=== PATIENT | male | born 1955 | race Caucasian/White ===

== ENCOUNTER 2016-02-29 02:14 | Inpatient (IN) | payer OTHER ==
[~2016-02-29] VITALS: Ht 198.1 cm; Wt 108.9 kg
[~2016-02-29 02:14] MED LIST: ASPIRIN EC81 M1 PO; AUGMENTIN 875-1 EACH PO; HYDROCHLOROTH12.5 M3 PO; LISINOPRIL10 M1 PO; PERCOCET 5-3251 EACH PO
--- NOTE | 2016-02-29 13:36 | Admission Core Measures ---
Admission Meds I reviewed the following Meds: Current Medications Sig/Lilian Start time Last Medication Dose Stop Time Status Admin Ampicillin Sodium/ 3,000 MG ONCE 02/28 0000 NR Sulbactam Sodium 02/28 2359 (Unasyn) Sodium Chloride 100 ML (Normal Saline 0.9%) Acute Coronary Syndrome Inclusion Criteria ACS Diagnosis No Inpatient Core Measures LDL Reminder: If No, please order W/I first 24hr of stay Congestive Heart Failure Inclusion Criteria CHF Diagnosis No Cerebrovascular accident Inclusion Criteria CVA/TIA Diagnosis No Inpatient Core Measures Bedside Swallow Eval Reminder: If BSE failed, place ST order Antithrombotic Reminder: Order Antithrombotic Medication by end of day 2 Antithrombotic Reminder: Document Reason Antithrombotic Not ordered by end of day 2 AFIB/Flutter Reminder: If Present, add to problem list AFIB/Flutter Reminder: Order Anticoag Medication for pts with AFIB/Flutter Atherosclerosis Reminder: If Present, add to problem list LDL Reminder: If No, please order W/I first 24hr of stay PT Order Reminder: If No, please order Venous thromboembolism Inpatient Core Measures VTE Risk Factors: Age > 40, Surgery VTE Prophylaxis Ordered Inpt Mech & Pharm No Mech VTE prophylaxis d/t No contraindications No VTE Pharm Prophylaxis d/t No contraindications Inclusion Criteria - Per Current guidelines, there needs to be overlap - treatment for the first 5 days of Warfarin therapy. - Parenteral Anticoagulation (IV or SC) needs to be - given along with Warfarin therapy. VTE Diagnosis No VTE Type NONE VTE Confirmed by (Test) NONE Problem List As ranked by this Provider includes Assessment & Plan 1. History of colostomy reversal HOME MEDS Home Med List Aspirin (Ecotrin*) 81 MG TABLET. 1 TAB PO DAILY HEART/BLOOD (Reported) Hydrochlorothiazide 12.5 MG CAPSULE 25 MG PO DAILY hypertension Lisinopril 10 MG TABLET 1 TAB PO DAILY hypertension
--- NOTE | 2016-02-29 19:26 | Admission Core Measures ---
Admission Meds I reviewed the following Meds: Current Medications Sig/Lilian Start time Last Medication Dose Stop Time Status Admin Ampicillin Sodium/ 3,000 MG ONCE 02/28 0000 NR Sulbactam Sodium 02/289 (Unasyn) Sodium Chloride 100 ML (Normal Saline 0.9%) Hydrochlorothiazide 25 MG DAILY 03/01 1000 UNVr (Hydrodiuril) Lisinopril 10 MG DAILY 03/01 1000 UNVr (Prinivil) Acute Coronary Syndrome Inclusion Criteria ACS Diagnosis No Inpatient Core Measures LDL Reminder: If No, please order W/I first 24hr of stay Congestive Heart Failure Inclusion Criteria CHF Diagnosis No Cerebrovascular accident Inclusion Criteria CVA/TIA Diagnosis No Inpatient Core Measures Bedside Swallow Eval Reminder: If BSE failed, place ST order Antithrombotic Reminder: Order Antithrombotic Medication by end of day 2 Antithrombotic Reminder: Document Reason Antithrombotic Not ordered by end of day 2 AFIB/Flutter Reminder: If Present, add to problem list AFIB/Flutter Reminder: Order Anticoag Medication for pts with AFIB/Flutter Atherosclerosis Reminder: If Present, add to problem list LDL Reminder: If No, please order W/I first 24hr of stay PT Order Reminder: If No, please order Venous thromboembolism Inpatient Core Measures VTE Risk Factors: Age > 40, Surgery VTE Prophylaxis Ordered Inpt Mech & Pharm No Mech VTE prophylaxis d/t No contraindications No VTE Pharm Prophylaxis d/t No contraindications Inclusion Criteria - Per Current guidelines, there needs to be overlap - treatment for the first 5 days of Warfarin therapy. - Parenteral Anticoagulation (IV or SC) needs to be - given along with Warfarin therapy. VTE Diagnosis No VTE Type NONE VTE Confirmed by (Test) NONE Problem List As ranked by this Provider includes Assessment & Plan 1. History of colostomy reversal HOME MEDS Home Med List Aspirin (Ecotrin*) 81 MG TABLET. 1 TAB PO DAILY HEART/BLOOD (Reported) Hydrochlorothiazide 12.5 MG CAPSULE 25 MG PO DAILY hypertension Lisinopril 10 MG TABLET 1 TAB PO DAILY hypertension
--- NOTE | 2016-02-29 20:15 | Operative Report ---
Operative/Inv Procedure Report Surgery Date: 02/29/16 Name of Procedure: reversal of colostomy Pre-Operative Diagnosis: colostomy (s/p Hartmans for perforated colon) Post-Operative Diagnosis: same Estimated Blood Loss: less than 50ml Surgeon/Ship Fitter: NIA DU,PRATIBHA CHAUDHRY Anesthesia: general endotracheal tube Operative/Procedure Note Note: Patient was positioned supine, after induction of general anesthesia, a tap block was performed, IV antibiotics were given, the colostomy was sutured shut and then the abdomen was clipped prepped and draped in the nipples to the groin in the usual sterile fashion patient was repositioned into lithotomy, and I irrigated the rectal stump with saline with a little bit of Betadine, several times gently. Next a midline incision was made excising the previous scar, with a 10 blade starting 2 cm above the umbilicus curving around to the right and ending just above the pubis. The incision was deepened with cautery through Carl's fascia clearing off the linea alba first then carefully incising it avoiding injury to the underlying small bowel which was quite adherent throughout the length the incision eventually we were able to run its entire length after extensive lysis of adhesions mostly to the anterior abdominal wall, but also to the rectal stump which had a ball of mucus at the end so, the Bookwalter retractor was set up to retract the small bowel and the cecum upwards exposing the pelvis, after some mobilization this end of the rectal stump had to be revised below the original staple line with a TA 60 stapler. We inserted a sizer per rectum to get a sense of the trajectory mobility of the rectal stump and decided that we were going to be able to go ahead. Next the colostomy was mobilized from the abdominal wall from both sides initially starting at the skin which was incised with the cautery care was taken to not injure the mesentery of the colon. Once mobilized and also some additional mobilization along the white line of Toldt laterally we could see that this could easily reach the rectal stump without tension or twisting. Then the colostomy and was engaged in the pursestring device, the distal tip excised and some of the scar and cleared off and after sizing a 31 EEA anvil was tied into the and and cleared off some more. Care was taken to not injure the mesentery. The bus assistant below had the EEA stapler and it was inserted under my guidance the spike was advanced just off to the left side near the staple line and then mated to the anvil clicked shot and the stapler was then fired. It was disengaged there were 2 complete donuts. Next using the proctoscope inserted distal to the anastomosis, we gently checked several times with air under the submerged anastomosis, it was airtight. The peritoneum especially the pelvis was irrigated checked for hemostasis, the position of the NG tube was checked and then the hole in the abdominal wall in the left lower quadrant for the ostomy was closed in layers first at the peritoneal level with an 0 Vicryl and then at the fascia level with 0 Maxon and then the skin was stapled but leaving an opening laterally so that we could wake that subcutaneous space with an iodoform 1 inch strip. The midline incision was reapproximated with 0 Maxon as well continuous, and then the skin was reapproximated with interrupted 3-0 Vicryl sutures subdermally especially around the umbilicus and then the skin was stapled and covered with an island dressing and ostomy site was covered with fluff gauze and tape. EBL minimal lap and sponge counts correct wound expectancy was clean contaminated IV fluids crystalloid complications none, patient had the procedure well and was returned to the recovery room in satisfactory condition.
[2016-02-29 21:00] VITALS: BP 156/90
--- NOTE | 2016-02-29 22:20 | NUR ---
PT ARRIVED FROM PACU, ALERT AND ORIENTED TIMES 3, VSS, AFEBRILE. NGT PATENT, TO LOW WALL SUCTION. MIDLINE ABDOMINAL DRESSING CLEAN DRY AND INTACT, DRESSING TO OLD COLOSTOMY SITE INTACT. ALPS ARE ON, SOME EDEMA TO RUE. DENIES PAIN AT THIS TIME. CALL [facility] WITHIN REACH
--- NOTE | 2016-02-29 22:27 | PN- General Surgery ---
Subjective Subjective: Post Op Note s/p colostomy reversal No c/o. Pain controlled. No n/v. No flatus, bm. Denies CP/SOB. Objective Vital Signs and I&Os Vital Signs Date Time Temp Pulse Resp B/P Pulse O2 O2 Flow FiO2 Ox Delivery Rate 02/28 2211 94 Room Air 02/28 2100 98.1 60 18 156/90 96 Room Air Physical Exam: General: NAD, comfortable, A&Ox3 Chest: CTAB, no wheezes, no rales. RRR Abdomen: soft, nondistended. Appropriately tender. Midline dressing with small amount of strikethrough otherwise clean dry and intact. Old Stoma site dressing clean dry and intact. Ext: No calve swelling/TTP, neurovascularly intact bilateral lower extremities Current Medications: Current Medications Sig/Lilian Start time Last Medication Dose Route Stop Time Status Admin Acetaminophen 650 MG Q6PRN PRN 02/28 223 UNVr PO Acetaminophen 1,000 MG .STK-MED ONE 02/28 1243 DC IV 02/28 1244 Ampicillin Sodium/ 3,000 MG ONCE 02/28 0000 DC Sulbactam Sodium IV 02/28 2359 Sodium Chloride 100 ML Dexamethasone 4 MG .STK-MED ONE 02/28 1244 DC IM 02/28 1245 Fentanyl Citrate 250 MCG .STK-MED ONE 02/28 1242 DC IM 02/28 1243 Heparin Sodium 5,000 UNIT Q8 02/28 2200 UNVr (Porcine) SC Hydrochlorothiazide 25 MG DAILY 03/01 1000 AC PO Hydromorphone HCl 2 MG .STK-MED ONE 02/28 1242 DC IM 02/28 1243 Ketorolac 30 MG .STK-MED ONE 02/28 1243 DC Tromethamine IM 02/28 1244 Lisinopril 10 MG DAILY 03/01 1000 AC PO Midazolam HCl 2 MG .STK-MED ONE 02/28 1243 DC IM 02/28 1244 Morphine Sulfate 2 MG Q3P PRN 02/28 2230 UNVr IV Morphine Sulfate 4 MG Q3P PRN 02/28 2230 UNVr IV Ondansetron HCl 4 MG Q8P PRN 02/28 2230 UNVr IV Ondansetron HCl 4 MG .STK-MED ONE 02/28 1243 DC IM 02/28 1244 Pantoprazole Sodium 40 MG DAILY 03/01 1000 UNVr IV Potassium Chloride 20 MEQ .Q10H 02/28 2230 UNVr Dextrose/Sodium 1,000 ML IV Chloride Assessment/Plan Assessment/Plan 60yo M POD#0 status post colostomy. AVSS, patient stable. - Nothing by mouth - NG tube to low wall suction - Pain control - When necessary Zofran - SQ heparin and Alps for DVT prophylaxis - I/O's - DC Mazariegos in a.m. - Continue IV fluid - CBC and BEP in a.m. - Out of bed as desired. First time with assistance. Core Measures/Miscellaneous Venous Thromboembolism VTE Risk Factors: Age > 40, Surgery VTE Contraindications: No Contraindications VTE Prophylaxis Ordered Inpt Mech & Pharm VTE Diagnosis: No VTE Type: NONE VTE Confirmed by (Test): NONE Beta Nikko Is Beta Nikko a Home Med? No Antibiotics Is Patient on Antibiotics? No
[2016-03-01] VITALS: BP 140/80
--- NOTE | 2016-03-01 06:37 | PN- General Surgery ---
See Addendum Subjective Subjective: Reports discomfort from ng tube mostly. Denies abdominal pain. Stapleton removed last night at his request, and he's voided several times since. No dizziness. No shortness of breath. No chest pains. Objective Vital Signs and I&Os Vital Signs Date Time Temp Pulse Resp B/P Pulse O2 O2 Flow FiO2 Ox Delivery Rate 03/01 0000 94 Room Air 03/01 0000 98.9 63 20 140/80 90 Room Air 02/28 2211 94 Room Air 02/28 2100 98.1 60 18 156/90 96 Room Air Intake & Output 03/01 0800 03/01 0000 02/28 1600 02/28 0800 02/28 0000 02/27 1600 Intake Total 800 300 Output Total 700 450 Balance 100 -150 Intake, IV 800 300 Intake, Oral 0 Output, 50 Gastric Drainage Output, Urine 700 400 Patient 240 lb Weight Physical Exam: General - alert & oriented x 3. comfortable. no acute distress. Lungs - clear bilaterally. no w/r/r. Cardiac - s1s2. reg. Abdomen - soft. few bowel sounds appreciated. dressings c/d/i. ng tube with scant drainage Extremities - warm bilaterally. no c/c/e. calves soft and nontender b/l. Assessment/Plan Assessment/Plan 60yo M POD#1 s/p reversal of colostomy (s/p hartmans for perforated colon) currently npo / ngt ?d/c ng tube pain control as ordered oob/ambulation encouraged hep sc - dvt ppx orion-operative unasyn completed stapleton removed last night. already voiding without difficulty f/u am labs to d/w Core Measures/Miscellaneous Venous Thromboembolism VTE Risk Factors: Age > 40, Surgery VTE Contraindications: No Contraindications VTE Prophylaxis Ordered Inpt Mech & Pharm VTE Diagnosis: No VTE Type: NONE VTE Confirmed by (Test): NONE Beta Nikko Is Beta Nikko a Home Med? No Antibiotics Is Patient on Antibiotics? No
[2016-03-01 08:22] VITALS: BP 142/95
[2016-03-01 08:42] LABS: ABSOLUTE BASOPHIL COUNT 0 /CUMM (0.0-0.2); ABSOLUTE EOSINOPHIL COUNT 0 /CUMM (0.0-0.7); ABSOLUTE GRANULOCYTE CT 8.1 /CUMM (1.4-6.5); ABSOLUTE LYMPH COUNT 1.5 /CUMM (1.2-3.4); ABSOLUTE MONOCYTE COUNT 0.6 /CUMM (0.10-0.60); BASOPHIL % 0.2 % (0.0-2.0); EOSINOPHIL % 0 % (0-5); MEAN CORPUSCULAR HGB 30.5 PG (27.0-31.0); MEAN CORPUSCULAR HGB CONC 33.5 G/DL (33.0-37.0); MEAN CORPUSCULAR VOLUME 90.8 FL (80.0-94.0); MEAN PLATELET VOLUME 9.9 FL (7.4-10.4); PLATELET COUNT 142 /CUMM (130-400); RBC DISTRIBUTION WIDTH 13.3 % (11.5-14.5); RED BLOOD CELL CT 4.74 /CUMM (4.70-6.10)
[2016-03-01 09:35] LABS: WHITE BLOOD CELL COUNT 10.2 /CUMM (4.8-10.8)
--- NOTE | 2016-03-01 11:54 | NUR ---
PT REFUSED TO TAKE BP MEDS EVEN THOUGH HIS BP IS 148/96. PT SAYS HIS DAUGHTER IS A DOCTOR AND TOLD HIM NOT TO TAKE THE MEDS. THIS NURSE INFORMED SHANTELL, THE ROSARIO BECERRA AND DR KRAMER WHO BOTH SPOKE WITH THE PATIENT AND EXPLAINED THE RISKS OF CONTINUING TO HAVE AN ELEVATED BLOOD PRESSURE. THE PATIENT AND HIS DEMONSTRATED UNDERSTANDING BUT STILL REFUSED TO TAKE ANY MEDICATION THAT WILL HELP TO LOWER HIS BP
[2016-03-01 16:16] VITALS: BP 162/92
[2016-03-02 00:33] VITALS: BP 150/80
[2016-03-02 07:55] VITALS: BP 168/80
--- NOTE | 2016-03-02 08:06 | PN- General Surgery ---
See Addendum Subjective Subjective: No acute overnight events reported. Clinically the patient is without complaints. He denies chest pain, shortness of breath and difficulty breathing. He kept the ngt in yesterday and found it to be less irritating. He denies nausea. He denies flatus and bm. He complains only of lack of sleep. Objective Vital Signs and I&Os Vital Signs Date Time Temp Pulse Resp B/P Pulse O2 O2 Flow FiO2 Ox Delivery Rate 03/02 0755 98.0 70 20 168/80 92 Room Air 03/02 0033 63 20 150/80 92 03/01 1616 98.4 68 21 162/92 92 Room Air 03/01 0822 98.6 60 20 142/95 94 Room Air Intake & Output 03/02 1600 03/02 0800 03/02 0000 03/01 1600 03/01 0800 03/01 0000 Intake Total 800 800 800 800 300 Output Total 1375 348 807 6405 450 Balance -575 300 -150 -300 -150 Intake, IV 800 800 800 800 300 Intake, Oral 0 0 Output, 300 250 150 50 Gastric Drainage Output, Urine 1075 312 142 9059 400 Patient 240 lb Weight Physical Exam: General: Alert and oriented x3, no acute distress Cardiac: RRR, s1s2 Pulmonary: CTA bilaterally Abdomen: Soft, orion-incisional tenderness, no distension, no bowel sounds. Dressings dry and intact. Extremities: Moves all extremities, distal sensation intact. Skin warm and well perfused. No peripneral edema. DP pulses palpable. Bilateral calves soft and non-tender. Assessment/Plan Assessment/Plan This is a 60 year old male, POD 2, s/p colostomy reversal -Continue npo today, consider dc ngt later today, output approximately 300 overnight, tube had been flushed several times at patient's request -Continue iv fluids -Continue strict I/O -Follow up am labs -Continue current pain regimen -Consider starting to inch packing out of colostomy site today -Will d/w Dr. Loaiza Core Measures/Miscellaneous Venous Thromboembolism VTE Risk Factors: Age > 40, Surgery VTE Contraindications: No Contraindications VTE Prophylaxis Ordered Inpt Mech & Pharm VTE Diagnosis: No VTE Type: NONE VTE Confirmed by (Test): NONE Beta Nikko Is Beta Nikko a Home Med? No Antibiotics Is Patient on Antibiotics? No
[2016-03-02 09:27] LABS: ABSOLUTE BASOPHIL COUNT 0 /CUMM (0.0-0.2); ABSOLUTE EOSINOPHIL COUNT 0 /CUMM (0.0-0.7); ABSOLUTE MONOCYTE COUNT 0.9 /CUMM (0.10-0.60); BASOPHIL % 0.3 % (0.0-2.0); EOSINOPHIL % 0.3 % (0-5)
[2016-03-02 09:30] LABS: ABSOLUTE GRANULOCYTE CT 8.1 /CUMM (1.4-6.5); ABSOLUTE LYMPH COUNT 1.4 /CUMM (1.2-3.4); GRANULOCYTE % 77.1 % (42.2-75.2); MEAN CORPUSCULAR HGB 29.8 PG (27.0-31.0); MEAN CORPUSCULAR HGB CONC 32.6 G/DL (33.0-37.0); MEAN CORPUSCULAR VOLUME 91.4 FL (80.0-94.0); MEAN PLATELET VOLUME 10.3 FL (7.4-10.4); PLATELET COUNT 156 /CUMM (130-400); RBC DISTRIBUTION WIDTH 13.1 % (11.5-14.5); RED BLOOD CELL CT 5.29 /CUMM (4.70-6.10); WHITE BLOOD CELL COUNT 10.5 /CUMM (4.8-10.8)
[2016-03-02 09:34] LABS: HEMATOCRIT 48.3 % (42-52)
[2016-03-02 16:20] VITALS: BP 160/102
[2016-03-03 00:20] VITALS: BP 160/98
[2016-03-03 07:15] VITALS: BP 138/82
--- NOTE | 2016-03-03 07:32 | PN- General Surgery ---
See Addendum Subjective Subjective: Patient reports that he was able to sleep well overnight and is feeling better. His ngt was dc'd late yesterday and he denies nausea and vomitting. He denies hiccupping, however, he acknowledged intermittent episodes of belching earlier in the night. He denies flatus or bm. He has been voiding withouth difficulty. He denies chest pain, shortness of breath and difficulty breathing. He denies pain to bilateral upper and lower extremities. Objective Vital Signs and I&Os Vital Signs Date Time Temp Pulse Resp B/P Pulse O2 O2 Flow FiO2 Ox Delivery Rate 03/03 0715 98.0 64 20 138/82 96 Room Air 03/03 0020 99.0 67 20 160/98 93 Room Air 03/02 1620 98.0 64 19 160/102 92 03/02 0755 98.0 70 20 168/80 92 Room Air Intake & Output 03/03 0800 03/03 0000 03/02 1600 03/02 0800 03/02 0000 03/01 1600 Intake Total 800 300 830 800 800 800 Output Total 625 462 144 6729 500 950 Balance 175 -200 125 -575 300 -150 Intake, IV 800 300 800 800 800 800 Intake, Oral 0 Intake, Other 30 Output, 50 80 300 250 150 Gastric Drainage Output, Urine 625 792 884 5928 250 800 Physical Exam: General: Alert and oriented x3, no acute distress Cardiac: RRR, s1s2 Pulm: CTA b Abdomen: Soft, mildly distended but non-tender. Hypoactive bowel sounds auscultated, heard only on left upper and lower quadrants. Extremities: Moves all extremities, distal sensations intact. Skin warm and well perfused. No peripheral edema. Bilateral calves soft and non-tender Assessment/Plan Assessment/Plan This is a 60 year old male, POD 3, s/p reversal colostomy -Continue NPO, await improved bowel function -Continue IVF -OOB, ambulation encouraged -IS encouraged -Packing inched out (1 cm) of colostomy site -Will discuss diet progression with Dr. Loaiza prior to advancing Core Measures/Miscellaneous Venous Thromboembolism VTE Risk Factors: Age > 40, Surgery VTE Contraindications: No Contraindications VTE Prophylaxis Ordered Inpt Mech & Pharm VTE Diagnosis: No VTE Type: NONE VTE Confirmed by (Test): NONE Beta Nikko Is Beta Nikko a Home Med? No Antibiotics Is Patient on Antibiotics? No
[2016-03-03 11:30] VITALS: BP 142/98
--- NOTE | 2016-03-03 12:21 | NUR ---
LATE ENTRY: PT REFUSED BOTH ANTI-HTN MEDICATIONS ORDERED. PT'S BP CHECKED BY RN PRIOR TO POSSIBLE ADMINISTRATON- 142/98 WITH PULSE OF 67. SURGICAL PA MARYJO DUFF MADE AWARE OF PT'S REFUSAL. WILL CONT TO MONITOR.
[2016-03-03 16:38] VITALS: BP 154/94
[2016-03-03 23:20] VITALS: BP 145/97
[2016-03-04 07:29] VITALS: BP 150/80
[2016-03-04 07:42] LABS: ABSOLUTE BASOPHIL COUNT 0 /CUMM (0.0-0.2); ABSOLUTE EOSINOPHIL COUNT 0.1 /CUMM (0.0-0.7); ABSOLUTE GRANULOCYTE CT 6.2 /CUMM (1.4-6.5); ABSOLUTE LYMPH COUNT 1.4 /CUMM (1.2-3.4); ABSOLUTE MONOCYTE COUNT 0.7 /CUMM (0.10-0.60); BASOPHIL % 0.5 % (0.0-2.0); EOSINOPHIL % 1.1 % (0-5); GRANULOCYTE % 73.6 % (42.2-75.2); HEMATOCRIT 48.3 % (42-52); MEAN CORPUSCULAR HGB 30.2 PG (27.0-31.0); MEAN CORPUSCULAR HGB CONC 33.4 G/DL (33.0-37.0); MEAN CORPUSCULAR VOLUME 90.4 FL (80.0-94.0); MEAN PLATELET VOLUME 9.9 FL (7.4-10.4); PLATELET COUNT 183 /CUMM (130-400); RBC DISTRIBUTION WIDTH 13.1 % (11.5-14.5); RED BLOOD CELL CT 5.34 /CUMM (4.70-6.10); WHITE BLOOD CELL COUNT 8.5 /CUMM (4.8-10.8)
[2016-03-04 08:14] VITALS: BP 150/80
--- NOTE | 2016-03-04 08:31 | NUR ---
PT C/O GAS PAIN. AMBULATION ENCOURAGED. PT WALKED HALLS X2 YESTERDAY. RN DICUSSED POSSIBLILTY OF HAVING SURGICAL PA ORDER [employer] TO HELP MANAGE GAS DISCOMFORT. PT WAS HESITANT YESTERDAY WHEN THIS WAS MENTIONED BUT IS WILLING TO HAVE IT ORDERED TODAY. SURGICAL PA ESTHER CONTACTED. PA TO COME UP AND ASSESS PT AND WILL DISCUSS ISSUE WITH DR. KRAMER. SURGICAL PA ALSO INFORMED OF PT'S CONTINUED REFUSAL OF ANTI-HTN MEDICATIONS. WILL CONT TO MONITOR.
--- NOTE | 2016-03-04 11:01 | PN- General Surgery ---
Subjective Subjective: POD #4 s/p colostomy reversal. Passing flatus and having BMs (slightly bloody). Tolerating clear liquids. Ambulating well. Objective Vital Signs and I&Os Vital Signs Date Time Temp Pulse Resp B/P Pulse O2 O2 Flow FiO2 Ox Delivery Rate 03/04 0814 63 150/80 03/04 0729 97.7 63 18 150/80 91 Room Air 03/03 2320 97.7 68 18 145/97 92 Room Air 03/03 1638 99.0 71 23 154/94 94 Room Air 03/03 1130 67 142/98 Intake & Output 03/04 1600 03/04 0800 03/04 0000 03/03 1600 03/03 0800 03/03 0000 Intake Total 120 950 800 800 300 Output Total 700 450 625 500 Balance 120 250 350 175 -200 Intake, IV 400 800 800 300 Intake, Oral 120 550 0 Number 1 0 0 Bowel Movements Output, 50 Gastric Drainage Output, Urine 700 450 625 450 Patient 240 lb Weight Physical Exam: Gen: AAOx3 in NAD Cor: S1+S2+ Lungs: CTA rajesh Abd: soft, NT, ND, +BS x4. Dressing removed. LLQ old ostomy site incision packed, inched out. Ext: no edema or calf tenderness to rajesh lower extremities. Results Last 48 Hours of Labs: Laboratory Tests 03/04 0632 Chemistry Sodium (137 - 145 mmol/L) 139 Potassium (3.5 - 5.1 mmol/L) 4.1 Chloride (98 - 107 mmol/L) 100 Carbon Dioxide (22 - 30 mmol/L) 27 Anion Gap (5 - 16) 11 BUN (9 - 20 mg/dL) 18 Creatinine (0.7 - 1.2 mg/dL) 0.8 Estimated GFR (>60 ml/min) > 60 BUN/Creatinine Ratio (7 - 25 %) 22.5 Calcium (8.4 - 10.2 mg/dL) 8.7 Phosphorus (2.5 - 4.5 mg/dL) 4.4 Magnesium (1.6 - 2.3 mg/dL) 1.7 Hematology CBC w Diff NO MAN DIFF REQ WBC (4.8 - 10.8 /CUMM) 8.5 RBC (4.70 - 6.10 /CUMM) 5.34 Hgb (14.0 - 18.0 G/DL) 16.1 Hct (42 - 52 %) 48.3 MCV (80.0 - 94.0 FL) 90.4 MCH (27.0 - 31.0 PG) 30.2 RDW (11.5 - 14.5 %) 13.1 Plt Count (130 - 400 /CUMM) 183 MPV (7.4 - 10.4 FL) 9.9 Gran % (42.2 - 75.2 %) 73.6 Lymphocytes % (20.5 - 51.1 %) 16.6 L Monocytes % (1.7 - 9.3 %) 8.2 Eosinophils % (0 - 5 %) 1.1 Basophils % (0.0 - 2.0 %) 0.5 Absolute Granulocytes (1.4 - 6.5 /CUMM) 6.2 Absolute Lymphocytes (1.2 - 3.4 /CUMM) 1.4 Absolute Monocytes (0.10 - 0.60 /CUMM) 0.7 H Absolute Eosinophils (0.0 - 0.7 /CUMM) 0.1 Absolute Basophils (0.0 - 0.2 /CUMM) 0 PUBS MCHC (33.0 - 37.0 G/DL) 33.4 Assessment/Plan Assessment/Plan A: POD #4 s/p colostomy reversal/ AVSS. Plan: Regular diet. May d/c later today if patient willing. Will remove packing prior to discharge if he leaves. Core Measures/Miscellaneous Venous Thromboembolism VTE Risk Factors: Age > 40, Surgery VTE Contraindications: No Contraindications VTE Prophylaxis Ordered Inpt Mech & Pharm VTE Diagnosis: No VTE Type: NONE VTE Confirmed by (Test): NONE Beta Nikko Is Beta Nikko a Home Med? No Antibiotics Is Patient on Antibiotics? No
[2016-03-04] MEDS ORDERED: PERCOCET 5-3251 EACH PO (14:00)
--- NOTE | 2016-03-04 14:02 | Patient Discharge Instructions ---
Discharge Instructions General Discharge Information You were seen/treated for: COLOSTOMY REVERSAL You had these procedures: COLOSTOMY REVERSAL Watch for these problems: INCREASED PAIN, REDNESS OR INCREASED DRAINAGE FROM WOUND, CHEST PAIN, SHORTNESS OF BREATH, FEVER GREATER THAN 101F No bath, but you may shower: Yes Special Instructions: Your incision will drain where it was packed. This is normal. Please cover area with gauze and tape it in place if the dressing is soiled. You can shower, just remove the gauze and tape before and replace it after the shower. Diet Continue normal diet: Yes Activity Full Activity/No Limits: No Activity Self Limited: Yes Pounds, do NOT lift more than: 10 Additional ACTIVITY Info: No driving while taking prescription pain medications. Call for a follow up appointment at your earliest convenience. Acute Coronary Syndrome Inclusion Criteria At DC or during hospital stay patient has or had the following: ACS DIAGNOSIS No Discharge Core Measures Meds if any: Prescribed or Continued at Discharge Meds if any: NOT Prescribed or Continued at Discharge Congestive Heart Failure Inclusion Criteria At DC or during hospital stay patient has or had the following: CHF DIAGNOSIS No Discharge Core Measures Meds if any: Prescribed or Continued at Discharge Meds if any: NOT Prescribed or Continued at Discharge Cerebrovascular accident Inclusion Criteria At DC or during hospital stay patient has or had the following: CVA/TIA Diagnosis No Discharge Core Measures Meds if any: Prescribed or Continued at Discharge Meds if any: NOT Prescribed or Continued at Discharge Venous thromboembolism Inclusion Criteria VTE Diagnosis No VTE Type NONE VTE Confirmed by (Test) NONE Discharge Core Measures - Per Current guidelines, there needs to be overlap - treatment for the first 5 days of Warfarin therapy. - If discharged on Warfarin prior to 5 days of - overlap therapy, the patient will need to be - assessed for post discharge needs including - *Post discharge parental anticoagulation - *Warfarin and/or parental anticoagulation education - *Follow up date to check INR post discharge At least 5 days overlap therapy as Inpatient No Meds if any: Prescribed or Continued at Discharge Note: Overlap Therapy is Warfarin and Anticoagulant Meds if any: NOT Prescribed or Continued at Discharge
--- NOTE | 2016-03-22 17:56 | Surgical Discharge Summary ---
Visit Information Visit Dates Admission Date: 02/29/16 Discharge Date: 03/04/16 History of Present Illness Chief Complaint: Colostomy Medical History Neurological: NONE EENT: NONE Cardiovascular: NONE Respiratory: NONE Gastrointestinal: diverticulitis Hepatic: NONE Renal: NONE Musculoskeletal: NONE Psychiatric: NONE Endocrine: NONE Blood Disorders: NONE Cancer(s): NONE [employer]/Reproductive: NONE History of MRSA: No History of VRE: No History of CDIFF: No Isolation History: Standard Surgical History Pertinent Surgical History: COLONOSCOPY - 2 YEARS AGO Psychosocial History Where Do You Live? Home Who Do You Live With? Spouse Services at Home: None What is Your Primary Language? Welsh Review of Systems: Constitutional: No fever, sweats ENMT: No sore throat Cardiovascular: No chest pain, palpitations or leg swelling Respiratory: No shortness of breath, cough, or sputum or dyspnea on exertion GI: No GERD or bleeding per rectum : No dysuria or hematuria Musculoskeletal: No new muscle weakness, bone or joint pain Skin / Breast: No jaundice, rashes or itching Psychiatric: No depression or anxiety Hematologic / lymphatic system: No problems with excessive bleeding, bruising, or blood clots Hospital Course Course Attending Physician: NIA DU,PRATIBHA Husain Primary Care Physician: PATIENT HAS NO PRIMARY CARE DR Hospital Course: The patient had an emergency colostomy for peritonitis from a free rupture of diverticulitis, a Nathan's procedure, 3 months ago and is now undergoing elective reversal of that ostomy with postoperative admission. He underwent the procedure well without complications and it took about 2 days to regain bowel function and he was discharged after advancing to regular diet on postoperative day 4. Allergies: Coded Allergies: No Known Allergies (11/21/15) Disposition Summary Disposition Principal Diagnosis: Colostomy present Additional Diagnosis: History of peritonitis from free rupture of diverticulitis Discharge Disposition: home or self care Discharge Instructions General Discharge Information Code Status: Full Code Patient's Diet: Resume usual avoid large portions of high fiber or chewy candy Patient's Activity: No heavy lifting especially shoveling snow Follow-Up Instructions/Appts: Next week in the office to check history wound and remove jordyn Medications at Discharge Discharge Medications: Continue taking these medications: Hydrochlorothiazide (Hydrochlorothiazide) 12.5 MG CAPSULE 25 Milligram ORAL DAILY Qty = 90 Comments: NOT GIVEN IN HOSPITAL Lisinopril (Lisinopril) 10 MG TABLET 1 Tablet ORAL DAILY Qty = 90 Comments: NOT GIVEN IN HOSPITAL Aspirin (Ecotrin*) 81 MG TABLET. 1 Tablet ORAL DAILY Comments: DOCUMENTED PER CMR DURING PRE-SX INTERVIEW NOT GIVEN IN HOSPITAL Start taking the following new medications: Oxycodone HCl/Acetaminophen (Percocet 5-325 MG Tablet) 5 MG-325 MG TABLET 1 Tablet ORAL EVERY 4 HOURS NEEDED as needed for PAIN Qty = 30 No Refills Comments: NOT GIVEN IN HOSPITAL Copies To: NIA DU,PRATIBHA Husain Attending MD Review Statement Attending Statement Attending MD Statement: examined this patient
== END 2016-03-04 14:55 | DRG 331 ==
LOC: ENRESERVDT → ENRESERVTM → CANRESERV → ENPENDDIS 02:14 → SDA 02:14 → CANBEDREQ 12:12 → 2NB 21:15
PROVIDERS: Nurse Practitioner; Physician Assistant; Physician Assistant Surgical; ADMIT Surgery
PROC: 0DBE0ZZ Excision of Large Intestine, Open Approach (ICD-10-PCS; principal; 2016-02-29)
PROC: 0DBP0ZZ Excision of Rectum, Open Approach (ICD-10-PCS; principal; 2016-02-29)
DX: Z43.3 Encounter for attention to colostomy (principal)
CPT/HCPCS: 2NBP; 2NBSP; 36415; 82436; 87086; 88304; J0131; J1100; J1644; J1885; J2405